=== PATIENT | female | born 1995 | race Caucasian/White ===

== ENCOUNTER 2020-10-09 02:01 | Inpatient (IN) | payer OTHER ==
[2020-10-09 03:11] LABS: BILIRUBIN NEGATIVE (NEGATIVE); BLOOD NEGATIVE Ery/uL (NEGATIVE); COLOR YELLOW (YELLOW); GLUCOSE (U) NORMAL (NORMAL); LEUKOCYTES 2+ Leu/uL (NEGATIVE); NITRITE NEGATIVE (NEGATIVE); PROTEIN NEGATIVE (NEGATIVE); SPECIFIC GRAVITY 1.025 (1.001-1.030); UROBILINOGEN 0.2 mg/dL (0.2-1.0)
[2020-10-09 03:12] LABS: CLARITY SLIGHTLY HAZY (CLEAR); HCT 32.7 % (37.0-47.0); HGB 10.8 g/dl (12.5-16.0); MCH 27.4 pg (25.0-31.0); MPV 13.3 fL (6.0-9.5); RBC 3.94 M/uL (4.20-5.40); RDW 15.9 % (11.5-14.0); WBC 8.3 K/uL (4.0-10.5)
[2020-10-09 03:17] LABS: BACTERIA 1+; YEAST PRESENT
[2020-10-10 05:10] LABS: HCT 30.3 % (37.0-47.0); HGB 9.8 g/dl (12.5-16.0); MCH 26.9 pg (25.0-31.0); MCHC 32.3 g/dL (32.0-36.0); MCV 83.2 fL (78.0-100.0); MPV 12.9 fL (6.0-9.5); RBC 3.64 M/uL (4.20-5.40); RDW 16.1 % (11.5-14.0); WBC 11.4 K/uL (4.0-10.5)
== END 2020-10-11 12:22 | disposition home or self-care (01) | DRG 806 ==
LOC: FOD 02:01 → FOB 02:02 → FOD 03:37 → FOB 03:38
PROVIDERS: ADMIT Obstetrics & Gynecology
PROC: 10E0XZZ Delivery of Products of Conception, External Approach (ICD-10-PCS; principal; 2020-10-09)
PROC: 0KQM0ZZ Repair Perineum Muscle, Open Approach (ICD-10-PCS; 2020-10-09)
DX: O99.02 Anemia complicating childbirth (principal); D62 Acute posthemorrhagic anemia; Z37.0 Single live birth; O99.12 Other diseases of the blood and blood-forming organs and certain disorders involving the immune mechanism complicating childbirth; E74.21 Galactosemia; O72.1 Other immediate postpartum hemorrhage; O99.214 Obesity complicating childbirth; Z3A.40 40 weeks gestation of pregnancy; E66.9 Obesity, unspecified; D69.6 Thrombocytopenia, unspecified; O48.0 Post-term pregnancy; Z20.822 Contact with and (suspected) exposure to COVID-19; O99.892 Other specified diseases and conditions complicating childbirth; O70.1 Second degree perineal laceration during delivery; Z88.1 Allergy status to other antibiotic agents
CPT/HCPCS: 36415; 81001; J2540; J2916; J7120; U0002